=== PATIENT | female | born 1970 | race Hispanic/Latino ===

== ENCOUNTER 2022-01-29 18:16 | Emergency (ER) | payer OTHER ==
[~2022-01-29] VITALS: Ht 157.5 cm; Wt 28.1 kg
[2022-01-29 18:55] LABS: BASOPHILS % (AUTO) 0.3 % (0.0-5.0); HEMATOCRIT 43.2 % (36-48); LYMPHOCYTES % (AUTO) 44.1 % (21.0-51.0); MEAN CORPUSCULAR HEMOGLOBIN 28.9 pg (27.0-33.0); MEAN CORPUSCULAR HGB CONC 33.6 g/dL (32.0-36.0); MEAN CORPUSCULAR VOLUME 86.2 fL (79-99); MONOCYTES % (AUTO) 5.8 % (3.0-13.0); NEUTROPHILS % (AUTO) 47.5 % (40.0-77.0); PLATELET COUNT (AUTO) 322 K/uL (130-400); RED BLOOD CELL COUNT(AUTO) 5.01 MIL/uL (4.00-5.50); RED CELL DISTRIBUTION WIDTH 13.2 % (11.0-15.5); WHITE BLOOD COUNT (AUTO) 9.5 K/uL (4.8-10.8)
[2022-01-29 18:59] LABS: APPEARANCE,URINE CLEAR (CLEAR); BILIRUBIN,URINE NEGATIVE (NEGATIVE); COLOR,URINE YELLOW (YELLOW); GLUCOSE, URINE (UA) NEGATIVE (NEGATIVE); KETONES,URINE NEGATIVE (NEGATIVE); LEUKOCYTE ESTERASE ,URINE NEGATIVE (NEGATIVE); NITRATE,URINE NEGATIVE (NEGATIVE); OCCULT BLOOD,URINE NEGATIVE (NEGATIVE); PH,URINE 5.5 (5.0-8.0); PROTEIN,URINE NEGATIVE (NEGATIVE); UROBILINOGEN,URINE 0.2 mg/dL (0.2-1.0)
[2022-01-29] MEDS ORDERED: FAMOTIDINE 20MG VIAL IV ONE (19:00)
[2022-01-29] MEDS ORDERED: 0.9% NACL 500ML IV.SOLN 500 ML IV ONE (19:00)
[2022-01-29] MEDS ORDERED: MORPHINE 4 MG SYG IVP ONE (19:00)
[2022-01-29] MEDS ORDERED: ONDANSETRON 4MG INJ IVP ONE (19:00)
[2022-01-29 19:06] LABS: CREATININE 0.7 mg/dL (0.5-1.5)
[2022-01-29 19:10] LABS: ALBUMIN 4.2 g/dL (3.5-5.0)
[2022-01-29] MEDS ORDERED: IOHEXOL 350 MG/ML 100ML INFUS..BTL IV ONE (19:30)
[2022-01-29 20:19] VITALS: BP 174/89
[2022-01-29] MEDS ORDERED: PANT40TA PO (20:41)
[2022-01-29] MEDS ORDERED: FAMO-136 PO (20:41)
== END 2022-01-29 21:09 | disposition home or self-care (01) ==
LOC: EDH 18:16
DX: K29.70 Gastritis, unspecified, without bleeding (principal); E11.9 Type 2 diabetes mellitus without complications; I10 Essential (primary) hypertension
CPT/HCPCS: 99285; 74177; 96374; 96375; 96361; 80053; 83690; 85025; 81003; 36415; J7040; J3490; J2405; J2270; Q9967

== ENCOUNTER 2025-05-13 01:27 | Emergency (ER) | payer SELFPAY ==
[~2025-05-13] VITALS: Ht 154.9 cm; Wt 62.1 kg
[~2025-05-13 01:27] MED LIST: FAMO-136 PO; PANT40TA PO
--- NOTE | 2025-05-13 01:30 | NUR ---
UA CUP PROVIDED
[2025-05-13 01:52] LABS: IMMATURE GRANULOCYTE ABSOLUTE 0.02 K/uL (0-1); NUCLEATED RED BLOOD CELLS 0.0 % (0.0-0.19); PLATELET COUNT (AUTO) 300 K/uL (130-400); RED BLOOD CELL COUNT(AUTO) 4.92 MIL/uL (4.00-5.50); RED CELL DISTRIBUTION WIDTH 13.3 % (11.0-15.5); WHITE BLOOD COUNT (AUTO) 9.1 K/uL (4.8-10.8)
[2025-05-13] MEDS: FAMOTIDINE 20MG VIAL IV ONE (02:02)
[2025-05-13] MEDS: 0.9%NACL 1000ML 1,000 ML IV ONE (02:03)
[2025-05-13 02:10] LABS: CREATININE 0.8 mg/dL (0.5-1.0); GLOMERULAR FILTR. RATE CALC 86.0 mL/min (>90); GLUCOSE,RANDOM 177.0 mg/dL (70-105); SODIUM SERUM 138.0 mmol/L (136-145); UREA NITROGEN, BLOOD 17.0 mg/dL (7-18)
[2025-05-13 02:17] LABS: ASPARTATE AMINOTRANSFERASE 14.0 U/L (10-37); TOTAL PROTEIN, SERUM 7.9 g/dL (6.0-8.3)
--- NOTE | 2025-05-13 02:22 | ERN ---
General Chief Complaint: Abdominal Pain Stated Complaint: ABD PAIN Time Seen by MD: :29 Time Seen by Midlevel: :29 Source: patient History of Present Illness Initial Comments Patient is a 55-year-old female presenting to the emergency department with midepigastric abdominal pain that started this morning and progressively worsened. The pain is now located to her left flank area. She reports associated nausea and vomiting. Denies any fever, chills, or urinary symptoms. 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 13 point review of systems assessed and all negative except for above. Physical Exam Physical Exam Dictation Vital Signs reviewed General Appearance: Alert, oriented x 3, no acute distress, well developed, n ourished. Head and Face: non-traumatic. Eyes: PERRL, pink conjunctivas, eyelid no trauma, anterior chamber with arcus senilis. Ears: Pinnas intact and no signs of trauma or erythema ear canals clear and no discharge TM no erythema Nose: No discharge, no bleeding. Oropharynx: Mouth normal, tongue pink, pharynx clear,no erythema, tonsils no exudates, no abscesses noted, mucous membrane moist Neck: Supple, non-tender, no thyromegaly, no masses, no JVD, no bruits Breast:Deferred Chest:No tenderness, no crepitus, no paradoxical movement, no retractions Lungs:Clear, well-ventilated, symmetric, no rales, no wheezing, no rhonchi, no stridor, good breath sounds bilaterally Heart: Regular rate, regular rhythm, no murmur, no gallops Vascular: no peripheral edema, Abdomen: Soft, positive bowel sounds, nondistended, no guarding, nontender, no rebound, no masses no hepatomegaly, no splenomegaly, no Fuller's sign, no hernias. Rectal: Deferred Genital: Deferred Neurological: Normal speech, motor function intact, sensory function intact Musculoskeletal: Neck nontender, full range of motion, back nontender, full range of motion, Extremities: nontender, full range of motion Skin: Color pink, dry, no turgor, no rash, no lacerations, no abrasions, no contusions. Lymphatic: Deferred Results Laboratory and Microbiology Lab and Micro Result Laboratory Tests Test 05/13/25 01:43 05/13/25 02:58 White Blood Count 9.1 K/uL (4.8-10.8) Red Blood Count 4.92 MIL/uL (4.00-5.50) Hemoglobin 13.8 g/dL (12.0-16.0) Hematocrit 42.5 % (36-48) Mean Corpuscular Volume 86.4 fL (79-99) Mean Corpuscular Hemoglobin 28.0 pg (27.0-33.0) Mean Corpuscular Hemoglobin Concent 32.5 g/dL (32.0-36.0) Red Cell Distribution Width 13.3 % (11.0-15.5) Platelet Count 300 K/uL (130-400) Mean Platelet Volume 10.7 fL (7.5-10.5) H Immature Granulocyte % (Auto) 0.2 % (0-1) Neutrophils (%) (Auto) 51.6 % (40.0-77.0) Lymphocytes (%) (Auto) 40.5 % (21.0-51.0) Monocytes (%) (Auto) 6.1 % (3.0-13.0) Eosinophils (%) (Auto) 1.3 % (0.0-8.0) Basophils (%) (Auto) 0.3 % (0.0-5.0) Neutrophils # (Auto) 4.7 K/uL (1.8-7.7) Lymphocytes # (Auto) 3.7 K/uL (1.0-4.8) Monocytes # (Auto) 0.6 K/uL (0.1-1.0) Eosinophils # (Auto) 0.12 K/uL (0.00-0.70) Basophils # (Auto) 0.03 K/uL (0.00-0.20) Absolute Immature Granulocyte (auto 0.02 K/uL (0-1) Nucleated Red Blood Cells 0.0 % (0.0-0.19) Sodium Level 138 mmol/L (136-145) Potassium Level 4.0 mmol/L (3.5-5.1) Chloride Level 99 mmol/L (101-111) L Carbon Dioxide Level 28 mmol/L (21-32) Blood Urea Nitrogen 17 mg/dL (7-18) Creatinine 0.8 mg/dL (0.5-1.0) Glomerular Filtration Rate Calc 86 mL/min (>90) Random Glucose 177 mg/dL (70-105) H Total Calcium 9.2 mg/dL (8.5-10.1) Total Bilirubin 0.3 mg/dL (0.2-1.0) Aspartate Amino Transf (AST/SGOT) 14 U/L (10-37) Alanine Aminotransferase (ALT/SGPT) 23 U/L (12-78) Alkaline Phosphatase 122 U/L (50-136) Total Protein 7.9 g/dL (6.0-8.3) Albumin 4.0 g/dL (3.5-5.0) Lipase 94 U/L (16-77) H Urine Color COLORLESS (YELLOW) Urine Appearance CLEAR (CLEAR) Urine pH 6.5 (5.0-8.0) Urine Specific [place] 1.016 (1.001-1.031) Urine Protein 10 mg/dL (NEGATIVE) H Urine Glucose (UA) NEGATIVE mg/dL (NEGATIVE) Urine Ketones NEGATIVE mg/dL (NEGATIVE) Urine Occult Blood NEGATIVE (NEGATIVE) Urine Nitrate NEGATIVE (NEGATIVE) Urine Bilirubin NEGATIVE mg/dL (NEGATIVE) Urine Urobilinogen 0.2 mg/dL (0.2-1.0) Urine Leukocyte Esterase NEGATIVE Josette/uL Urine RBC 0-1 /HPF (0-1) Urine WBC 0-1 /HPF (0-1) Urine Squamous Epithelial Cells RARE /HPF (0-2) Urine Bacteria None /HPF (None Seen) Labs Reviewed?: Yes EKG/XRAY/US/CT/MRI CT Scan Comment EXAM: CT Abdomen and Pelvis without and with IV contrast CLINICAL HISTORY: Left flank pain. Mid and epigastric pain. TECHNIQUE: Postcontrast thin collimated axial CT images of the abdomen and pelvis were obtained, with sagittal and coronal reformatted images also submitted. A CT scan is done according to ALARA (As Low As Reasonably Achievable). COMPARISON: None. FINDINGS: Unremarkable visualized lung parenchyma. Mild hepatomegaly (19.5 cm) with fatty infiltration of the liver. No obvious focal lesion.. No focal abnormality within the gallbladder, pancreas, spleen, adrenals, or kidneys. Renal calculus could not be evaluated due to contrast in the pelvicalyceal system. No evidence of hydronephrosis. Large bowel loops are moderately distended with fecal matter. Changes in constipation. Scattered diverticulosis of the sigmoid colon. There is no obvious bowel wall thickening. Bowel loops are normal in caliber without evidence of obstruction or ileus. The appendix is not visualized. Surgical regina at the base of the cecum. There is no abnormality within the urinary bladder. Unremarkable reproductive organs. Calcific densities in the left parametrial venous plexus are consistent with phleboliths. Abdominal and pelvic vessels are patent. Subtle atherosclerotic calcification of the origin of the right renal artery and infrarenal aorta. No lymphadenopathy. No free fluid. There is no acute osseous abnormality. Mild degenerative changes in the sacroiliac, superolateral hip joint, and multilevel degenerative facet arthropathy. IMPRESSIONS: No acute process in the abdomen or pelvis. Large bowel loops are moderately distended with fecal matter. Scattered diverticulosis of the sigmoid colon without evidence of diverticulitis. No inflammatory bowel wall thickening, diverticulosis, or diverticulitis. Mild hiatus hernia. Mild hepatomegaly with fatty infiltration of the liver. /[facility] MDM: Received patient from ASHTYN Simon: 55-year-old female here for evaluation of abdominal pain. As per sign-out to me we are pending CT abdomen. Labs and imaging reassuring. CT abdomen shows constipation. Patient well-appearing no acute distress. Vital signs stable. We will discharge the patient home at this time on anticipatory guidelines and MiraLax. Advised on concerning signs and symptoms for which to return to the emergency room. Discharge home at this time RATIONALE: TESTS CONSIDERED AND ORDERED SECONDARY TO SHARED DECISION MAKING INCLUDE: PREVIOUS OUTSIDE RECORDS REVIEWED: OLD ER VISITS. RISK OF COMPLICATION AND/OR MORBIDITY OR MORTALITY OF PATIENT MANAGEMENT: NONE MEDICATIONS-PER MEDICATION RECONCILIATION NEED FOR HOSPITALIZATION: PATIENT DOES NOT MEET CRITERIA FOR HOSPITALIZATION. NEED FOR EMERGENCY MAJOR/MINOR SURGERY: NO THERE ARE NO SOCIAL CONCERNS WITH THIS PATIENT. PRESCRIPTION DRUG MANAGEMENT PRESCRIPTIONS WILL INCLUDE SYMPTOMATIC CARE PATIENT'S PRIOR EXTERNAL MEDICAL RECORDS FROM OTHER ER VISITS WERE REVIEWED BY ME INDICATED. PRIOR TESTING AND RESULTS FROM PREVIOUS VISITS WERE REVIEWED. PRIOR TESTS WERE TAKEN INTO ACCOUNT WITH MEDICAL DECISION MAKING AND RESOURCE UTILIZATION, INDEPENDENT HISTORIAN/HISTORIANS WERE USED TO OBTAIN COMPLETE MEDICAL HISTORY. I INDEPENDENTLY INTERPRETED THE TEST THAT WERE PERFORMED, RESULTS WERE REVIEWED BY ME AND CONSIDERED FINDINGS ON RADIOLOGY IF ORDERED. MEDICAL MANAGEMENT AND EXAMINATION INTERPRETATION DISCUSSIONS WERE HAD BY ME WITH OTHER QUALIFIED HEALTHCARE PROFESSIONALS INDICATED FOR THE PATIENT'S CARE. ED Course Orders Procedure Category Date Status Time Cbc With Differential LAB 05/13/25 Complete 01:29 Comprehensive LAB 05/13/25 Complete Metabolic Panel 01:29 Lipase LAB 05/13/25 Complete 01:29 Urinalysis Profile LAB 05/13/25 Complete 01:29 Ondansetron 4mg Inj PHA 05/13/25 Complete (Zofran 4mg Inj) 01:30 Famotidine 20mg Vial PHA 05/13/25 Complete (Pepcid 20mg Vial) 01:30 Ct Abdomen/Pelvis CT 05/13/25 Resulted W/Contrast 01:29 Morphine 2mg Syg PHA 05/13/25 Complete (Morphine 2mg Syg) 01:30 0.9%Nacl 1000ml (Ns PHA 05/13/25 Complete 1000ml) 01:30 Current Medications Medications (Trade) Dose Ordered Sig/Mikal Route PRN Reason Start Time Stop Time Status Last Admin Dose Admin Famotidine (Pepcid 20mg Vial) 20 mg ONCE ONCE IV 05/13/25 01:30 05/13/25 01:32 DC 05/13/25 02:02 Morphine Sulfate (morPHINE 2MG SYG) 2 mg ONCE ONCE IVP 05/13/25 01:30 05/13/25 01:32 DC 05/13/25 02:03 Ondansetron HCl (zoFRAN 4MG INJ) 4 mg ONCE ONCE IVP 05/13/25 01:30 05/13/25 01:32 DC 05/13/25 02:03 Sodium Chloride 1,000 ml @ 0 mls/hr ONCE ONCE IV 05/13/25 01:30 05/13/25 01:32 DC 05/13/25 02:03 Vital Signs Date Time Temp Pulse Resp B/P (MAP) Pulse Ox O2 Delivery O2 Flow Rate FiO2 05/13/25 01:29 98.2 80 20 197/103 98 Room Air DX & DISP Disposition: Discharge Departure Impression: Primary Impression: Constipation Condition: Stable Scripts Polyethylene Glycol 3350 (Miralax) 17 Gram Powd.pack 17 GM PO DAILY for Constipation for 10 Days, #10 PACK Prov: LEX BURGER MD 05/13/25 Referrals: SELF,REFERRAL (PCP) ASHU SIMON PAC May 13, 2025 02:22 LEX BURGER MD May 13, 2025 04:36
[2025-05-13 03:08] LABS: APPEARANCE,URINE CLEAR (CLEAR); GLUCOSE, URINE (UA) NEGATIVE (NEGATIVE); LEUKOCYTE ESTERASE ,URINE NEGATIVE Leu/uL (NEGATIVE); NITRATE,URINE NEGATIVE (NEGATIVE); OCCULT BLOOD,URINE NEGATIVE (NEGATIVE)
[2025-05-13 03:10] LABS: ADD UA MICROSCOPIC YES
[2025-05-13 03:11] LABS: SQUAMOUS EPITHELIAL CELL,UR RARE /HPF (0-2)
--- NOTE | 2025-05-13 04:17 | HMCIMG ---
EXAM: CT Abdomen and Pelvis without and with IV contrast CLINICAL HISTORY: Left flank pain. Mid and epigastric pain. TECHNIQUE: Postcontrast thin collimated axial CT images of the abdomen and pelvis were obtained, with sagittal and coronal reformatted images also submitted. A CT scan is done according to ALARA (As Low As Reasonably Achievable). COMPARISON: None. FINDINGS: Unremarkable visualized lung parenchyma. Mild hepatomegaly (19.5 cm) with fatty infiltration of the liver. No obvious focal lesion.. No focal abnormality within the gallbladder, pancreas, spleen, adrenals, or kidneys. Renal calculus could not be evaluated due to contrast in the pelvicalyceal system. No evidence of hydronephrosis. Large bowel loops are moderately distended with fecal matter. Changes in constipation. Scattered diverticulosis of the sigmoid colon. There is no obvious bowel wall thickening. Bowel loops are normal in caliber without evidence of obstruction or ileus. The appendix is not visualized. Surgical regina at the base of the cecum. There is no abnormality within the urinary bladder. Unremarkable reproductive organs. Calcific densities in the left parametrial venous plexus are consistent with phleboliths. Abdominal and pelvic vessels are patent. Subtle atherosclerotic calcification of the origin of the right renal artery and infrarenal aorta. No lymphadenopathy. No free fluid. There is no acute osseous abnormality. Mild degenerative changes in the sacroiliac, superolateral hip joint, and multilevel degenerative facet arthropathy. IMPRESSIONS: No acute process in the abdomen or pelvis. Large bowel loops are moderately distended with fecal matter. Scattered diverticulosis of the sigmoid colon without evidence of diverticulitis. No inflammatory bowel wall thickening, diverticulosis, or diverticulitis. Mild hiatus hernia. Mild hepatomegaly with fatty infiltration of the liver. /[facility]
[2025-05-13] MEDS ORDERED: POLY17PO4 PO (04:35)
[2025-05-13 05:08] VITALS: BP 155/65; PULSE 68; RESP 18; TEMP 98.6; O2SAT 98
[2025-05-13] MEDS ORDERED: IOHEXOL-350 75 ML VIAL IV ONE (07:12)
== END 2025-05-13 05:15 | disposition home or self-care (01) ==
LOC: EDH 01:27
DX: K59.00 Constipation, unspecified (principal); R11.2 Nausea with vomiting, unspecified; E11.9 Type 2 diabetes mellitus without complications; I10 Essential (primary) hypertension; Z79.899 Other long term (current) drug therapy; Z90.49 Acquired absence of other specified parts of digestive tract
CPT/HCPCS: 99285; 74177; 96374; 96375; 80053; 83690; 85025; 81001; 36415; J1308; J2270; J7030; J2405; Q9967